=== PATIENT | male | born 1990 | race American Indian/Alaskan Native ===

== ENCOUNTER 2018-08-01 01:29 | Emergency (ER) | payer SELFPAY ==
[2018-08-01 01:51] VITALS: BP 132/86
[2018-08-01 02:29] LABS: Hematocrit 45.5 % (35.5-45.6); Hemoglobin 15.4 gm/dl (11.8-15.2); Mean Corpuscular HGB Conc 34 % (32-34); Mean Corpuscular Volume 88 fl (84-94); Platelet Count 232 K/mm3 (140-440); Red Blood Count 5.18 M/mm3 (3.65-5.03); Red Cell Distribution Width 13.8 % (13.2-15.2)
[2018-08-01 02:49] LABS: BUN/Creatinine Ratio 10; Blood Urea Nitrogen 10 mg/dL (9-20); Calcium 9.2 mg/dL (8.4-10.2); Hemolysis Index 12
[2018-08-01 04:10] LABS: Bilirubin,Urine NEG (Negative); Blood,Urine NEG (Negative); Calcium Oxalate Crystals,Urine FEW; Color,Urine Yellow (Yellow); Mucus,Urine FEW /HPF; Protein,Urine <15 mg/dL mg/dL (Negative); Urobilinogen,Urine < 2.0 mg/dL (<2.0)
[2018-08-01] MEDS ORDERED: LIDOCAINE VISCOUS 2% PO ONE (04:38)
[2018-08-01] MEDS ORDERED: ALUM-MAG HYDROX-SIMETH 200-200-20MG/5ML PO ONE (04:38)
[2018-08-01] MEDS ORDERED: ZOFRAN ODT PO ONE (04:38)
[2018-08-01] MEDS ORDERED: BENTYL PO ONE (04:38)
--- NOTE | 2018-08-01 04:38 | Emergency Department Report ---
Vomiting/Diarrhea - HPI Chief Complaint: Back Pain/Injury Stated Complaint: EMESIS/BACK PAIN Time Seen by Provider: 08/01/18 03:51 Duration: Today Severity: severe (8/10 left flank) Nausea/Vomiting Severity: Severe Diarrhea Severity: None Pain Location: Left Sided Pain Severity: Severe (8/10) Symptoms: Yes Rash, No Watery Diarrhea, No Bloody diarrhea, No Fever, No Able to Tolerate Fluids, No Recent Unusual Foods, No Recent Untreated Water, No Recent use of Antibiotics, No Family w/ Similar Symptoms, No Contacts w/ Similar Symptoms, No Hematuria, No Recent URI Symptoms Other History: This is a 28-year-old male here with here with his family and he reports that his left flank side started hurting last night at 7 PM and he started vomiting again and had vomited 6 times prior to coming to the hospital and he said he noticed some blood in his vomit from retching. He reported his pain is 8 out of 10 to his left side. Denies any abdominal pain but bloating. No gas passed since 7 PM last night. He said that is not usual for him. Pain is crampy and intermittent. Denies any fever or chills. Denies any diarrhea and last bowel movement was yesterday which was normal. Denies any history of abdominal surgery kidney stones. Denies any medical problems or any narcotic use. Denies any gallbladder problem. No medical or surgical history. No medication taken. ED Review of Systems ROS: Stated complaint: EMESIS/BACK PAIN Other details as noted in HPI Constitutional: denies: chills, fever ENT: denies: throat pain Respiratory: denies: cough, shortness of breath, wheezing Cardiovascular: denies: chest pain, palpitations, dyspnea on exertion, edema, syncope Gastrointestinal: nausea, vomiting, hematemesis. denies: abdominal pain, diarrhea, constipation, melena, hematochezia Genitourinary: denies: urgency, dysuria, hematuria, discharge, testicular pain, testicular mass Musculoskeletal: back pain. denies: joint swelling, arthralgia, myalgia Skin: denies: rash Neurological: denies: headache, numbness, paresthesias, confusion, abnormal gait, vertigo ED Past Medical Hx - Past Medical History Previous Medical History?: No - Surgical History Past Surgical History?: No - Family History Family history: hypertension - Social History Smoking Status: Current Every Day Smoker Substance Use Type: Marijuana - Medications Home Medications: Home Medications Medication Instructions Recorded Confirmed Last Taken Type Dicyclomine [Bentyl] 40 mg PO Q8H 3 Days #180 bottle 08/01/18 Unknown Rx Famotidine [Pepcid] 20 mg PO BID 6 Days #12 tablet 08/01/18 Unknown Rx Ondansetron [Zofran ODT TAB] 8 mg PO Q8HR PRN #12 tab.rapdis 08/01/18 Unknown Rx Vomiting Diarrhea Exam - Exam General: Vital signs noted. No distress. Alert and acting appropriately. This is a 28-year-old male well-nourished well-developed in no acute distress. HEENT: Yes Moist Mucous Membranes (uvula midline and oral airways patent), No Pharyngeal Erythema, No Pharyngeal Exudates, No Rhinorrhea, No Conjuctival Injection, No Frontal Tenderness, No Maxillary Tenderness Neck: No Adenopathy, No Rigidity (supple, no C-spine tenderness and full range of motion) Lungs: Yes Clear Lung Sounds, Yes Good Air Exchange, No Wheezes, No Stridor, No Cough, No Nasal Flaring, No Retractions, No Use of Accessory Muscles Heart exam: Regular: Yes, Murmur: No, Tachycardia: No Abdomen: Tenderness: Yes (minimal tenderness to left upper and mid quadrant without any guarding or rebound tenderness. Minimal CVA tenderness.), Peritoneal Signs: No (nonacute abdomen), Distention: Yes (mild distention), Hyperactive Bowel sounds: No (hypoactive bowel sounds) Skin exam: Rash: No, Edema: No, Normal turgor: Yes (cleaned and intact and no rash no lesions) Neurologic: Alert and oriented 3, no deficits. Musculoskeletal: Unremarkable. Full range of motion in all extremities No cce. + 2 pulses in all extremities, no neurovascular compromise Exam: Back exam. Patient with no vertebral tenderness to thoracic or lumbar spine. He reports some pain with flexion of back to left lower back. No saddle anesthesia and negative straight leg raises. No rash. Normal range of motion. ED Course Vital Signs 08/01/18 01:48 Temperature 98.8 F Pulse Rate 81 Respiratory 18 Rate Blood Pressure 132/86 O2 Sat by Pulse 98 Oximetry - Reevaluation(s) Reevaluation #1: 08/01/18 04:50 Patient received Zofran 8 mg ODT which helped with his nausea and no vomiting since he came to the ER. He also received Bentyl 40 mg, lidocaine 15 mL by mouth and Maalox 30 mL by mouth with Bentyl 40 mg by mouth. Patient is stable in no acute distress at present. Abdominal 2 view x-ray shows nonspecific air for levels involving small bowel and large bowel loops. A generalized ileus cannot be excluded. Reevaluation #2: 08/01/18 05:51 Patient made nothing by mouth, IV fluids started at 250 mL an hour via INT . Patient refused NG tube Reevaluation #3: 08/01/18 06:[address] Anderson was the attending physician this morning. He wants patient to have CT scan of the abdomen and pelvis with IV contrast and report back to him after CT scan is back. He is okay with patient not have an NG tube. Patient to receive Haldol to help with the nausea and vomiting. Reevaluation #4: 08/01/18 07:03 Patient had a bowel movement and IV fluid is still infusing. Here received his Haldol and he is wanting to go home and refuses in to have CT scan of his abdomen and pelvis with IV contrast done. I discussed with patient the danger of lesion and that he will need to sign AGAINST MEDICAL ADVICE and that he can become very ill which can lead to if he leaves without completing treatment and he still insisted on leaving. He had a large BM and he decided to wait until IV fluid is complete. 08/01/18 07:16 Patient decided to stay for CT scan of the abdomen and pelvis with IV contrast. He refuses NG tube and Dr. Suarez of his aware and okay with patient not having NG tube. Reevaluation #5: 08/01/18 09:[address] scan of the abdomen and pelvis with IV and by mouth contrast and spoke with Dr. suarez often myself. He reported that there were no emergent findings but patient still with ileus with fluid and small intestine and gas and large intestine. No obstruction noted. No comment made about this nonemergent problem. I discussed this with Dr. Anderson and patient can go home with close follow-up with primary care and gi doctor. He does not have any access to medical care. ED Medical Decision Making - Lab Data Result diagrams: 08/01/18 01:58 08/01/18 01:58 Lab Results 08/01/18 08/01/18 08/01/18 Range/Units 01:58 01:58 03:38 WBC 8.8 (4.5-11.0) K/mm3 RBC 5.18 H (3.65-5.03) M/mm3 Hgb 15.4 H (11.8-15.2) gm/dl Hct 45.5 (35.5-45.6) % MCV 88 (84-94) fl MCH 30 (28-32) pg MCHC 34 (32-34) % RDW 13.8 (13.2-15.2) % Plt Count 232 (140-440) K/mm3 Sodium 138 (137-145) mmol/L Potassium 3.8 (3.6-5.0) mmol/L Chloride 99.7 (98-107) mmol/L Carbon Dioxide 25 (22-30) mmol/L Anion Gap 17 mmol/L BUN 10 (9-20) mg/dL Creatinine 1.0 (0.8-1.5) mg/dL Estimated GFR > 60 ml/min BUN/Creatinine Ratio 10 % Glucose 103 H (75-100) mg/dL Calcium 9.2 (8.4-10.2) mg/dL Urine Color Yellow (Yellow) Urine Turbidity Clear (Clear) Urine pH 5.0 (5.0-7.0) Ur Specific [place] 1.019 (1.003-1.030) Urine Protein <15 mg/dl (Negative) mg/dL Urine Glucose (UA) Neg (Negative) mg/dL Urine Ketones Neg (Negative) mg/dL Urine Blood Neg (Negative) Urine Nitrite Neg (Negative) Urine Bilirubin Neg (Negative) Urine Urobilinogen < 2.0 (<2.0) mg/dL Ur Leukocyte Esterase Neg (Negative) Urine WBC (Auto) 1.0 (0.0-6.0) /HPF Urine RBC (Auto) 3.0 (0.0-6.0) /HPF U Epithel Cells (Auto) < 1.0 (0-13.0) /HPF Calcium Oxalate Crystal Few Urine Mucus Few /HPF - Radiology Data Radiology results: report reviewed X-ray two-view of the abdomen dictated by radiologist and report reviewed by myself. Please see below for details Findings [address] [address] XRay Report Signed Patient: RAVIN DALEY MR#: [id number] : 1990 Acct:[id number] Age/Sex: 28 / M ADM Date: 08/01/18 Loc: ED Attending Dr: Ordering Physician: HENRY LUJAN Date of Service: 08/01/18 Procedure(s): XR abdomen 2V Accession Number(s): [id number] cc: HENRY LUJAN Fluoro Time In Minutes: FINAL REPORT EXAM: XR ABDOMEN 2V HISTORY: nausea and vomiting TECHNIQUE: Supine and upright views of the abdomen were obtained. FINDINGS: There are air-fluid levels involving small bowel and large bowel loops. Free air is not seen. There is no evidence of mass effect or suspicious calcifications. The skeletal structures reveal a mild levoscoliosis of the lumbar spine. IMPRESSION: Nonspecific air for levels involving small bowel and large bowel loops. A generalized ileus cannot be excluded. Transcribed By: RB Dictated By: ROSETTE PIERRE MD Electronically Authenticated By: ROSETTE PIERRE MD Signed Date/Time: 08/01/18 0501 DD/ 8 TD/TT: 08/01/[address] scan of the abdomen and pelvis with IV contrast and by mouth contrast was reviewed by Dr. Uriarte who is a radiologist and due to deficit in radiologist system at present unable to get the final report slow verbal report was given to myself and Dr. Anderson by radiologist. There was mention of fluid in small bowel in gas in the large intestine. Patient does have ileus without any obstruction per radiologist. No emergent finding mentioned by radiologist and final report to follow when radiologist system his back and operation - Medical Decision Making This is a 28-year-old male here report that he is having nausea and vomiting in since 7 PM last night. Patient found to have mild distention and stoma, mild tenderness to palpate to left upper and mid quadrant with minimal CVA tender ness. CBC and CMP is stable and urinalysis is stable. Abdominal x-ray shows possibility of ileus in large and small bowel. Patient was given medication to include Zofran 8 mg ODT for nausea which she has not had any nausea or vomiting, Maalox, Bentyl and lidocaine by mouth. After x-ray 2 views of abdomen which was dictated by radiologist and reviewed by myself was reviewed patient was made not farzaneh by mouth, NG tube placed to low suction and IV fluid normal saline started at 250 mL an hour. Patient is in no distress at present. Patient had attempted to leave AMA but was convinced to stay. He is currently in CT scan. 0850-patient is back from CT scan and verbal report given by radiologist to Dr. anderson and myself. CT scan of the abdomen and pelvis with IV contrast and by mouth contrast was reviewed by Dr. Cuba who is a radiologist and due to deficit in radiologist system at present unable to get the final report slow verbal report was given to myself and Dr. Anderson by radiologist. There was mention of fluid in small bowel in gas in the large intestine. Patient does have ileus without any obstruction per radiologist. No emergent finding mentioned by radiologist and final report to follow when radiologist system his back and operation. I discussed with patient's and his significant other report of laboratory results, CT scan and also abdominal x-ray and I discussed with him that he needs to follow up with GI and primary care physician which she does not have any access to medical care so I discussed with him that he needs to return to the emergency room if symptoms return and he is feeling worse to include nausea and vomiting, abdominal or back pain, fever and or chills, bloating with inability to pass gas, weakness, dizziness and he agrees. I also discussed diet to include liquid diet until seen by GI doctor primary care doctor and he voiced understanding. Patient is awake and alert and in no acute distress. No nausea or vomiting and he had large bowel movements. Denies any pain at present. Prescriptions for Zofran, Bentyl and Pepcid. discharge home with S/O. - Differential Diagnosis bowel obstruction, renal calculus, colitis, gastroenteritis, UTI Critical care attestation.: If time is entered above; I have spent that time in minutes in the direct care of this critically ill patient, excluding procedure time. ED Disposition Clinical Impression: Cannabinoid hyperemesis syndrome, Ileus Nausea and vomiting Qualifiers: Vomiting type: unspecified Vomiting Intractability: non-intractable Qualified Code(s): R11.2 - Nausea with vomiting, unspecified Abdominal pain Qualifiers: Abdominal location: upper abdomen, unspecified Qualified Code(s): R10.10 - Upper abdominal pain, unspecified Disposition: DC-01 TO HOME OR SELFCARE Is pt being admited?: No Does the pt Need Aspirin: No Condition: Stable Instructions: Acute Nausea and Vomiting (ED), Cannabis Abuse (ED), Abdominal Pain (ED), Ileus (ED) Additional Instructions: Take Zofran for nausea, Bentyl and Pepcid to help with stomach pain. Please refrain from using marijuana because this drug inpatient causes severe nausea and vomiting with abdominal pain and lead to dehydration, multiorgan failure and possible . Please follow-up with primary care physician and transmission and protection engineer tomorrow for follow-up nausea vomiting , ileus with abdominal pain. Please see discharge instruction paperwork for details of address and phone number Start off with clear liquid diet and please progress per your primary care or GI doctor but please do not add solid food until you are seen by a doctor and cleared. Increase your fluids to 2-3 L of water daily but please avoid caffeine, acidic food or carbonated beverages as these can be irritated to stomach. Also please avoid spicy food If your symptoms worsen, please return to the emergency room Prescriptions: Dicyclomine [Bentyl] 40 mg PO Q8H 3 Days #180 bottle Famotidine [Pepcid] 20 mg PO BID 6 Days #12 tablet Ondansetron [Zofran ODT TAB] 8 mg PO Q8HR PRN #12 tab.rapdis PRN Reason: Nausea And Vomiting Referrals: YA RODRIGUEZ [Primary Care Provider] - 08/02/18 [facility] [Provider Group] - 08/02/18 [facility] [Outside] - 08/02/18 Forms: Accompanied Note, Work/School Release Form(ED)
--- NOTE | 2018-08-01 05:01 | XRay Report ---
FINAL REPORT EXAM: XR ABDOMEN 2V HISTORY: nausea and vomiting TECHNIQUE: Supine and upright views of the abdomen were obtained. FINDINGS: There are air-fluid levels involving small bowel and large bowel loops. Free air is not seen. There i s no evidence of mass effect or suspicious calcifications. The skeletal structures reveal a mild levo scoliosis of the lumbar spine. IMPRESSION: Nonspecific air for levels involving small bowel and large bowel loops. A generalized ileus cannot be excluded.
[2018-08-01] MEDS ORDERED: NACL 0.9% 250ML 250 ML IV ONE (05:42)
[2018-08-01] MEDS ORDERED: NACL 0.9% 1000 ML 1,000 ML ONE (05:54)
[2018-08-01] MEDS ORDERED: NACL 0.9% 1000 ML 1,000 ML IV SCH (06:00)
[2018-08-01] MEDS ORDERED: HALDOL IM ONE (06:14)
--- NOTE | 2018-08-01 09:43 | Cat Scan Report ---
CT abdomen and pelvis with contrast: Abdominal pain. Following IV contrast transverse images were obtained from the low chest to the ischium with coronal and sagittal 2-D reformatted images. The visualized lungs are clear. The abdominal and retroperitoneal organs are unremarkable. The opacified abdominal aorta and major branches appear normal. The unopacified bowel demonstrates fluid in mildly dilated small bowel loops. There are some air-fluid levels. There is mild gaseous distention of colon. The appendix is visualized. There are no inflammatory changes and no abnormal fluid collections identified. A small right inguinal hernia is suspected. Impression: Nonspecific ileus pattern.
== END 2018-08-01 09:38 | disposition home or self-care (01) ==
LOC: ED 01:29
DX: K56.7 Ileus, unspecified (principal); R11.2 Nausea with vomiting, unspecified; R10.10 Upper abdominal pain, unspecified; F17.200 Nicotine dependence, unspecified, uncomplicated; F12.10 Cannabis abuse, uncomplicated
CPT/HCPCS: 36415; 74019; 74177; 80048; 81001; 85027; 96360; 96372; 99285; J1630; J7030; Q9967; Q0162

== ENCOUNTER 2020-05-26 | Emergency (ER) | payer SELFPAY | END 2020-05-26 00:30 | disposition left against medical advice (07) | LOC: ED | DX: K08.89 Other specified disorders of teeth and supporting structures (principal); Z53.21 Procedure and treatment not carried out due to patient leaving prior to being seen by health care provider ==

== ENCOUNTER 2021-02-23 07:28 | Emergency (ER) | payer OTHER ==
[2021-02-23 08:05] VITALS: BP 141/99
--- NOTE | 2021-02-23 08:52 | Emergency Department Report ---
ED ENT HPI - General Chief complaint: Sore Throat Stated complaint: SORE THROAT Time Seen by Provider: 02/23/21 08:41 Source: patient Mode of arrival: Ambulatory Limitations: No Limitations - History of Present Illness Initial comments: This is a pleasant 30-year-old male who presents to the emergency department chief complaint of sore throat. Patient reports "I think I have strep throat." He reports a subjective fever yesterday. He reports generalized body aches and malaise. He denies any known past medical history, current medication use or kn own allergies to medications. He reports pain is aggravated by swallowing. - Related Data Previous Rx's Medication Instructions Recorded Last Taken Type Dicyclomine [Bentyl] 40 mg PO Q8H 3 Days #180 bottle 08/01/18 Unknown Rx Famotidine [Pepcid] 20 mg PO BID 6 Days #12 tablet 08/01/18 Unknown Rx Ondansetron [Zofran ODT TAB] 8 mg PO Q8HR PRN #12 tab.rapdis 08/01/18 Unknown Rx Amoxicillin [Trimox CAP] 500 mg PO Q8H #30 capsule 02/23/21 Unknown Rx Naproxen [EC-Naprosyn] 500 mg PO BID #20 tablet.dr 02/23/21 Unknown Rx Nystas/Diphen/Xyl Visc/Mylanta 30 ml MM Q4H PRN #120 ml 02/23/21 Unknown Rx [Magic Mouthwash] Allergies Allergy/AdvReac Type Severity Reaction Status Date / Time mushroom Allergy Anaphylaxis Verified 08/01/18 01:50 ED Dental HPI - General Chief complaint: Sore Throat Stated complaint: SORE THROAT Time Seen by Provider: 02/23/21 08:41 Source: patient Mode of arrival: Ambulatory Limitations: No Limitations - Related Data Previous Rx's Medication Instructions Recorded Last Taken Type Dicyclomine [Bentyl] 40 mg PO Q8H 3 Days #180 bottle 08/01/18 Unknown Rx Famotidine [Pepcid] 20 mg PO BID 6 Days #12 tablet 08/01/18 Unknown Rx Ondansetron [Zofran ODT TAB] 8 mg PO Q8HR PRN #12 tab.rapdis 08/01/18 Unknown Rx Amoxicillin [Trimox CAP] 500 mg PO Q8H #30 capsule 02/23/21 Unknown Rx Naproxen [EC-Naprosyn] 500 mg PO BID #20 tablet. 02/23/21 Unknown Rx Nystas/Diphen/Xyl Visc/Mylanta 30 ml MM Q4H PRN #120 ml 02/23/21 Unknown Rx [Magic Mouthwash] Allergies Allergy/AdvReac Type Severity Reaction Status Date / Time mushroom Allergy Anaphylaxis Verified 08/01/18 01:50 ED Review of Systems ROS: Stated complaint: SORE THROAT Other details as noted in HPI Constitutional: fever. denies: chills Eyes: denies: eye pain, eye discharge, vision change ENT: as per HPI, throat pain. denies: ear pain Respiratory: denies: cough, shortness of breath, wheezing Cardiovascular: denies: chest pain, palpitations Endocrine: no symptoms reported Gastrointestinal: denies: abdominal pain, nausea, diarrhea Genitourinary: denies: urgency, dysuria Musculoskeletal: denies: back pain, joint swelling, arthralgia Skin: denies: rash, lesions Neurological: denies: headache, weakness, paresthesias Psychiatric: denies: anxiety, depression Hematological/Lymphatic: denies: easy bleeding, easy bruising ED Past Medical Hx - Past Medical History Previous Medical History?: No - Surgical History Past Surgical History?: Yes Additional Surgical History: Right knee - Social History Smoking Status: Current Every Day Smoker Substance Use Type: None - Medications Home Medications: Home Medications Medication Instructions Recorded Confirmed Last Taken Type Dicyclomine [Bentyl] 40 mg PO Q8H 3 Days #180 bottle 08/01/18 Unknown Rx Famotidine [Pepcid] 20 mg PO BID 6 Days #12 tablet 08/01/18 Unknown Rx Ondansetron [Zofran ODT TAB] 8 mg PO Q8HR PRN #12 tab.rapdis 08/01/18 Unknown Rx Amoxicillin [Trimox CAP] 500 mg PO Q8H #30 capsule 02/23/21 Unknown Rx Naproxen [EC-Naprosyn] 500 mg PO BID #20 tablet. 02/23/21 Unknown Rx Nystas/Diphen/Xyl Visc/Mylanta 30 ml MM Q4H PRN #120 ml 02/23/21 Unknown Rx [Magic Mouthwash] ED Physical Exam - General Limitations: No Limitations General appearance: alert, in no apparent distress - Head Head exam: Present: atraumatic, normocephalic - Eye Eye exam: Present: normal appearance, PERRL, EOMI Pupils: Present: normal accommodation - ENT ENT exam: Present: normal exam, mucous membranes moist, TM's normal bilaterally. Absent: normal orophraynx (There is bilateral tonsillar enlargement 1+ with bilateral exudate to the tonsils. There is no peritonsillar bulging, retropharyngeal bulging or tongue elevation. No dysphonia or drooling.) - Neck Neck exam: Present: normal inspection, full ROM, lymphadenopathy (Anterior cervical lymphadenopathy). Absent: tenderness, meningismus - Respiratory Respiratory exam: Present: normal lung sounds bilaterally. Absent: respiratory distress, wheezes, rales, rhonchi, stridor - Cardiovascular Cardiovascular Exam: Present: regular rate, normal rhythm, normal heart sounds. Absent: systolic murmur, diastolic murmur, rubs, gallop - GI/Abdominal GI/Abdominal exam: Present: soft, normal bowel sounds. Absent: distended, tenderness, guarding, rebound, rigid - Rectal Rectal exam: Present: deferred - Extremities Exam Extremities exam: Present: normal inspection, full ROM, normal capillary refill. Absent: tenderness - Back Exam Back exam: Present: normal inspection, full ROM. Absent: tenderness, CVA tenderness (R), CVA tenderness (L) - Neurological Exam Neurological exam: Present: alert, oriented X3, normal gait - Psychiatric Psychiatric exam: Present: normal affect, normal mood - Skin Skin exam: Present: warm, dry, intact, normal color. Absent: rash ED Course Vital Signs 02/23/21 08:04 Temperature 99.6 F Pulse Rate 92 H Respiratory 18 Rate Blood Pressure 141/99 O2 Sat by Pulse 99 Oximetry ED Medical Decision Making - Medical Decision Making Patient is well-appearing. Centor criteria is 4 of 4+ and I will treat the ewelina ent empirically for strep throat. We will give him Magic mouthwash, amoxicillin and Naprosyn. Recommend outpatient primary care follow-up. Patient was given return precautions for any unilateral throat swelling, dysphonia, drooling or any change or worsening symptoms. He verbalized understand the diagnosis, treatment plan and follow-up instructions and all his questions were answered. - Differential Diagnosis Strep throat, mononucleosis, viral pharyngitis Critical care attestation.: If time is entered above; I have spent that time in minutes in the direct care of this critically ill patient, excluding procedure time. ED Disposition Clinical Impression: Streptococcal tonsillitis Disposition: HOME / SELF CARE / HOMELESS Is pt being admited?: No Condition: Stable Instructions: Tonsillitis, [id number] Prescriptions: Naproxen [EC-Naprosyn] 500 mg PO BID #20 tablet. Nystjames/Diphen/Xyl Visc/Mylanta [Magic Mouthwash] 30 ml MM Q4H PRN #120 ml PRN Reason: Throat Pain Amoxicillin [Trimox CAP] 500 mg PO Q8H #30 capsule Referrals: [facility] [Provider Group] - 3-5 Days Forms: Work/School Release Form(ED) Time of Disposition: 08:51
== END 2021-02-23 09:10 | disposition home or self-care (01) ==
LOC: ED 07:28
DX: J03.00 Acute streptococcal tonsillitis, unspecified (principal); F17.200 Nicotine dependence, unspecified, uncomplicated; Z79.899 Other long term (current) drug therapy; Z91.018 Allergy to other foods; Z98.890 Other specified postprocedural states
CPT/HCPCS: 99282

== ENCOUNTER 2021-06-11 15:52 | Emergency (ER) | payer SELFPAY ==
--- NOTE | 2021-06-11 17:49 | Emergency Department Report ---
Upper Extremity - HPI Chief Complaint: Extremity Injury, Upper Stated Complaint: R RING FINGER POPPED OUT Time Seen by Provider: 06/11/21 17:16 Upper Extremity: Right Ring Finger (Pain and swelling to the distal aspect of the finger) Occurred When: Today (About 1 hour prior to arrival) Mechanism: Other (Patient states that he was pulling up his pants using his finger when he suddenly felt a pop at the level of the DIP joint of the right fourth finger) Severity: mild, moderate Symptoms: Yes Pain with Movement, Yes Limited Range of Movement, Yes Swelling, No Deformity, No Numbness, No Weakness, No Bruising/Ecchymosis, No Laceration or Abrasion Other History: Patient is right-hand dominant ED Review of Systems ROS: Stated complaint: R RING FINGER POPPED OUT Other details as noted in HPI Comment: All other systems reviewed and negative Musculoskeletal: joint swelling, arthralgia ED Past Medical Hx - Surgical History Additional Surgical History: Right knee - Social History Smoking Status: Current Every Day Smoker Substance Use Type: None - Medications Home Medications: Home Medications Medication Instructions Recorded Confirmed Last Taken Type Dicyclomine [Bentyl] 40 mg PO Q8H 3 Days #180 bottle 08/01/18 Unknown Rx Famotidine [Pepcid] 20 mg PO BID 6 Days #12 tablet 08/01/18 Unknown Rx Ondansetron [Zofran ODT TAB] 8 mg PO Q8HR PRN #12 tab.rapdis 08/01/18 Unknown Rx Amoxicillin [Trimox CAP] 500 mg PO Q8H #30 capsule 02/23/21 Unknown Rx Naproxen [EC-Naprosyn] 500 mg PO BID #20 tablet.dr 02/23/21 Unknown Rx Nystas/Diphen/Xyl Visc/Mylanta 30 ml MM Q4H PRN #120 ml 02/23/21 Unknown Rx [Magic Mouthwash] Ibuprofen [Motrin] 600 mg PO Q8H PRN #30 tablet 06/11/21 Unknown Rx Upper Extremity Exam - Exam General: Vital signs noted. No distress. Alert and acting appropriately. Head and Torso: No HEENT Abnormality, No Neck Tenderness, No Chest/Lungs Abnormality, No Abdominal Tenderness, No Back Tenderness Shoulder Exam: Yes Normal Range of Motion in Shoulder, No Shoulder Tenderness, No Clavicle Tenderness, No Shoulder Deformity, No AC Joint Tenderness Arm Exam: No Arm/Humerus Tenderness, No Arm Deformity Elbow: Yes Normal Range of Motion in Elbow, No Elbow Tenderness, No Elbow Deformity Forearm: No Forearm Tenderness, No Forearm Deformity, No Pain with Pronation, No Pain with Supination Wrist: Yes Normal ROM in Wrist, No Wrist Tenderness, No Wrist Deformity, No Snuffbox Tenderness, No Pain with Axial Thumb Compression Hand: Yes Digit Tenderness (There is mild tenderness about the DIP joint of the right fourth finger), No Hand Tenderness, No Hand Deformity, No Normal ROM in Digit(s) (Patient unable to actively fully flex and extend the DIP joint; on passive flexion extension it is painful but otherwise normal at the level of the DIP joint of the right fourth finger), No Digit(s) Deformity, No Tendon Dysfunction CMS Exam: Yes Normal Distal Pulses, Yes Normal Capillary Refill, Yes Normal Distal Sensation, No Broken Skin ED Course Vital Signs 06/11/21 16:14 Temperature 98.5 F Pulse Rate 69 Respiratory 16 Rate Blood Pressure 151/92 [Right] O2 Sat by Pulse 98 Oximetry ED Medical Decision Making - Radiology Data Radiology results: report reviewed Patient: RAVIN DALEY MR# : [id number] : 1990 Acct:[id number] Age/Sex: 30 / M ADM Date: 06/11/21 Loc: ED Attending Dr: Ordering Physician: LENNY IVERSON Date of Service: 06/11/21 Procedure(s): XR finger(s) 2+V RT Accession Number(s): [id number] cc: LENNY IVERSON Fluoro Time In Minutes: RIGHT FINGERS 3 VIEWS INDICATION / CLINICAL INFORMATION: pain/swelling/felt pop COMPARISON: None available. FINDINGS: BONES / JOINT(S): No acute fracture or subluxation. No significant arthritis. SOFT TISSUES: No significant abnormality. ADDITIONAL FINDINGS: None. Signer Name: Tyelr Arce MD Signed: 06/11/2021 6:16 PM Workstation Name: [id number] Transcribed By: IRMA Dictated By: Tyler Arce MD Electronically Authenticated By: Tyler Arce MD Signed Date/Time: 06/11/211815 DD/ 13 TD/TT: Critical care attestation.: If time is entered above; I have spent that time in minutes in the direct care of this critically ill patient, excluding procedure time. ED Disposition Clinical Impression: Finger sprain Disposition: 01 HOME / SELF CARE / HOMELESS Is pt being admited?: No Does the pt Need Aspirin: No Condition: Stable Instructions: Finger Sprain, Adult Additional Instructions: I recommend that you use the finger splint as discussed. You can apply ice to the area. Take the ibuprofen soak with any pain. If after 1 to 2 weeks you still continue having issues with the finger I do recommend follow-up with the clinical documentation specialist listed on your discharge instruction for further evaluation. Return to the ER if any point your symptoms worsens. Prescriptions: Ibuprofen [Motrin] 600 mg PO Q8H PRN #30 tablet PRN Reason: Pain Referrals: ROSETTE SERRANO MD [Staff Physician] - 3-5 Days Forms: Work/School Release Form(ED) Time of Disposition: 18:42
--- NOTE | 2021-06-11 18:20 | XRay Report ---
RIGHT FINGERS 3 VIEWS INDICATION / CLINICAL INFORMATION: pain/swelling/felt pop COMPARISON: None available. FINDINGS: BONES / JOINT(S): No acute fracture or subluxation. No significant arthritis. SOFT TISSUES: No significant abnormality. ADDITIONAL FINDINGS: None. Signer Name: Tyler Arce MD Signed: 06/11/2021 6:16 PM Workstation Name: [id number]
[2021-06-11 18:51] VITALS: BP 124/82
== END 2021-06-11 18:49 | disposition home or self-care (01) ==
LOC: ED 15:52
DX: S63.614A Unspecified sprain of right ring finger, initial encounter (principal); F17.200 Nicotine dependence, unspecified, uncomplicated; X58.XXXA Exposure to other specified factors, initial encounter; Y93.89 Activity, other specified; Y92.89 Other specified places as the place of occurrence of the external cause; Y99.8 Other external cause status
CPT/HCPCS: 99283